=== PATIENT | female | born 1985 | race African-American/Black ===

== ENCOUNTER 2023-10-19 21:01 | Inpatient (IN) | payer OTHER ==
[2023-10-19 21:39] VITALS: BMI 23.3
[2023-10-19] MEDS ORDERED: NALOXONE (NARCAN) HCL 4 MG/0.1 ML SPRAY NS PRN (22:04)
[2023-10-19] MEDS ORDERED: BISMUTH SUBSALICYLATE 524 MG/30 ML PO PRN (22:04)
[2023-10-19] MEDS ORDERED: MAG HYDROX/AL HYDROX/SIMETH 30 ML UNIT-DOSE CUP PO PRN (22:04)
[2023-10-19] MEDS ORDERED: LOPERAMIDE HCL 2 MG CAPSULE PO PRN (22:04)
[2023-10-19] MEDS ORDERED: BENZONATATE 200 MG CAPSULE PO PRN (22:04)
[2023-10-19] MEDS ORDERED: NALOXONE HCL 0.4 MG/ML VIAL IM PRN (22:04)
[2023-10-19] MEDS ORDERED: DICYCLOMINE HCL 10 MG CAPSULE PO PRN (22:04)
[2023-10-19] MEDS ORDERED: guaiFENesin 600 MG TABLET.ER (FP) PO PRN (22:04)
[2023-10-19] MEDS ORDERED: BENZOCAINE/MENTHOL (CHLORASEPTIC ) LOZENGE MM PRN (22:04)
[2023-10-19] MEDS ORDERED: chlordiazePOXIDE HCL 25 MG CAPSULE PO PRN (22:04)
[2023-10-19] MEDS: chlordiazePOXIDE HCL 25 MG CAPSULE PO SCH (23:40)
[2023-10-19] MEDS: METHOCARBAMOL 500 MG TABLET PO PRN (23:42)
[2023-10-20] MEDS: IBUPROFEN 600 MG TABLET (FP) PO PRN (00:46)
[2023-10-20] MEDS: NICOTINE 14 MG/24 HOURS TOPICAL PATCH TD SCH (10:11)
[2023-10-20] MEDS: PRENATAL VITAMINS W/ FOLIC ACID TABLET (FP) PO SCH (10:11)
[2023-10-20] MEDS: ONDANSETRON *ODT* 4 MG TABLET SL PRN (10:13)
[2023-10-20] MEDS: IBUPROFEN 400 MG TABLET (FP) PO PRN (10:15)
[2023-10-20] MEDS: NICOTINE POLACRILEX 2 MG LOZENGE BC PRN (10:31)
[2023-10-20 12:03] LABS: HEMATOCRIT 33.6 % (32.4-45.2); MCH 30.4 pg (25.7-33.7); MCHC 32.8 g/dl (32.0-36.0); MEAN CELL VOLUME 92.6 fl (80-96); MEAN PLT VOLUME 8.1 fl (7.5-11.1); PLATELET COUNT 174 10^3/uL (134-434); RBC 3.63 M/mm3 (3.60-5.2); RDW 13.2 % (11.6-15.6); WHITE BLOOD COUNT 3.9 K/mm3 (4.0-10.0)
[2023-10-20 12:04] LABS: CHLORIDE 101 mmol/L (98-107); POTASSIUM 3.8 mmol/L (3.5-5.1); SODIUM 136 mmol/L (136-145)
[2023-10-20 12:12] LABS: ANION GAP 7 mmol/L (4-13); CALCIUM 9.3 mg/dL (8.5-10.1); CO2 28 mmol/L (21-32); GLUCOSE,RANDOM 94 mg/dL (74-106)
[2023-10-20 12:13] LABS: BLOOD UREA NITROGEN 13.1 mg/dL (7-18)
[2023-10-20 12:15] LABS: CREATININE 0.6 mg/dL (0.55-1.3); SGPT/ALT 36 U/L (13-61)
[2023-10-20 12:16] LABS: SGOT/AST 76 U/L (15-37)
[2023-10-20 12:17] LABS: TOT PROT 7.2 g/dl (6.4-8.2)
[2023-10-20 12:18] LABS: ALK PHOS 79 U/L (45-117); BILIRUBIN,TOTAL 1.2 mg/dL (0.2-1)
[2023-10-20] MEDS: CYCLOBENZAPRINE HCL 10 MG TABLET (FP) PO SCH (14:22)
[2023-10-20] MEDS: FLUTICASONE PROP 0.05% 16 GM NASAL SPRAY NS SCH (14:23)
[2023-10-20] MEDS: hydrOXYzine PAMOATE 25 MG CAPSULE (FP) PO PRN (15:08)
[2023-10-20] MEDS ORDERED: MELATONIN 5 MG TABLETS PO SCH (22:00)
[2023-10-20] MEDS: THIAMINE 100 MG TABLET PO SCH (22:15)
[2023-10-21] MEDS: chlordiazePOXIDE HCL 25 MG CAPSULE PO SCH (05:51)
[2023-10-21] MEDS ORDERED: CHOLECALCIFEROL (VIT D3) 5000 UNITS (125 MCG) CAP PO SCH (10:00)
[2023-10-21] MEDS: LORATADINE 10 MG TABLET PO SCH (10:15)
[2023-10-21] MEDS: CHOLECALCIFEROL (VIT D3) 400 UNIT (10 MCG) TABLET PO SCH (10:15)
[2023-10-21] MEDS: ACETAMINOPHEN 325 MG TABLET (FP) PO PRN (10:17)
[2023-10-22] MEDS ORDERED: chlordiazePOXIDE HCL 10 MG CAPSULE PO PRN
[2023-10-22] MEDS: chlordiazePOXIDE HCL 10 MG CAPSULE PO SCH (05:34)
[2023-10-23] MEDS: chlordiazePOXIDE HCL 10 MG CAPSULE PO SCH (05:41)
[2023-10-23] MEDS: PANTOPRAZOLE 40 MG TABLET PO SCH (10:29)
[2023-10-23 21:23] VITALS: PULSE 78; RESP 16; TEMP 97.8
[2023-10-23] MEDS: PRAZOSIN HCL 1 MG CAPSULE PO SCH (21:59)
[2023-10-23] MEDS: traZODone HCL 100 MG TABLET (FP) PO SCH (21:59)
[2023-10-23] MEDS ORDERED: traZODone HCL 50 MG TABLET (FP) PO SCH (22:00)
[2023-10-24] MEDS: MAGNESIUM HYDROX 2400MG/30ML ORAL SUSPENSION 30 ML CUP PO PRN (04:15)
[2023-10-24] MEDS: chlordiazePOXIDE HCL 10 MG CAPSULE PO ONE (04:15)
[2023-10-24 06:42] VITALS: BP 104/67
[2023-10-24] MEDS: POLYETHYLENE GLYCOL (HEALTHYLAX) 3350 17 GM PACKET PO PRN (08:16)
== END 2023-10-24 09:27 | disposition home or self-care (01) | DRG 775 ==
LOC: YASAS 21:01 → Y6N 23:02
PROVIDERS: ADMIT Allergy & Immunology; ATTEND Psychiatry & Neurology Pain Medicine
PROC: HZ2ZZZZ Detoxification Services for Substance Abuse Treatment (ICD-10-PCS; principal; 2023-10-19)
DX: F10.230 Alcohol dependence with withdrawal, uncomplicated (principal); F12.20 Cannabis dependence, uncomplicated; F17.210 Nicotine dependence, cigarettes, uncomplicated; F31.9 Bipolar disorder, unspecified; F19.24 Other psychoactive substance dependence with psychoactive substance-induced mood disorder; F41.9 Anxiety disorder, unspecified; F43.10 Post-traumatic stress disorder, unspecified; M54.50 Low back pain, unspecified; G89.29 Other chronic pain
CPT/HCPCS: 36415; 80053; 80305; 80307; 81025; 85027; 86780; 93005; 93010; Q0162

== ENCOUNTER 2024-01-09 14:30 | Inpatient (IN) | payer OTHER ==
[2024-01-09 15:17] VITALS: BMI 21.8
[2024-01-09] MEDS ORDERED: POLYETHYLENE GLYCOL (HEALTHYLAX) 3350 17 GM PACKET PO PRN (17:32)
[2024-01-09] MEDS ORDERED: BISMUTH SUBSALICYLATE 524 MG/30 ML PO PRN (17:32)
[2024-01-09] MEDS ORDERED: NICOTINE POLACRILEX 2 MG LOZENGE BC PRN (17:32)
[2024-01-09] MEDS ORDERED: DICYCLOMINE HCL 10 MG CAPSULE PO PRN (17:32)
[2024-01-09] MEDS ORDERED: MAG HYDROX/AL HYDROX/SIMETH 30 ML UNIT-DOSE CUP PO PRN (17:32)
[2024-01-09] MEDS ORDERED: guaiFENesin 600 MG TABLET.ER (FP) PO PRN (17:32)
[2024-01-09] MEDS ORDERED: BENZOCAINE/MENTHOL (CHLORASEPTIC ) LOZENGE MM PRN (17:32)
[2024-01-09] MEDS ORDERED: LOPERAMIDE HCL 2 MG CAPSULE PO PRN (17:32)
[2024-01-09] MEDS ORDERED: BENZONATATE 200 MG CAPSULE PO PRN (17:32)
[2024-01-09] MEDS ORDERED: ACETAMINOPHEN 325 MG TABLET (FP) PO PRN (17:32)
[2024-01-09] MEDS ORDERED: diazePAM 5 MG TABLET ONE (18:44)
[2024-01-09] MEDS: diazePAM 5 MG TABLET PO PRN (18:55)
[2024-01-09] MEDS: THIAMINE 100 MG TABLET PO SCH (22:23)
[2024-01-09] MEDS: MELATONIN 5 MG TABLETS PO SCH (22:23)
[2024-01-09] MEDS: diazePAM 5 MG TABLET PO SCH (22:26)
[2024-01-09] MEDS: IBUPROFEN 400 MG TABLET (FP) PO PRN (22:27)
[2024-01-10] MEDS: ONDANSETRON *ODT* 4 MG TABLET SL PRN (03:41)
[2024-01-10] MEDS: METHOCARBAMOL 500 MG TABLET PO PRN (05:44)
[2024-01-10] MEDS: PRENATAL VITAMINS W/ FOLIC ACID TABLET (FP) PO SCH (10:22)
[2024-01-10] MEDS: hydrOXYzine PAMOATE 25 MG CAPSULE (FP) PO PRN (10:23)
[2024-01-10] MEDS: CHOLECALCIFEROL (VIT D3) 5000 UNITS (125 MCG) CAP PO SCH (10:24)
[2024-01-10 10:25] LABS: HEMOGLOBIN 11.6 GM/dL (10.7-15.3); MCHC 33.1 g/dl (32.0-36.0); MEAN CELL VOLUME 93.8 fl (80-96); MEAN PLT VOLUME 8.5 fl (7.5-11.1); PLATELET COUNT 168 10^3/uL (134-434); RBC 3.73 M/mm3 (3.60-5.2); WHITE BLOOD COUNT 3.1 K/mm3 (4.0-10.0)
[2024-01-10] MEDS: FOLIC ACID 1 MG TABLET (FP) PO SCH (10:25)
[2024-01-10 10:26] LABS: POTASSIUM 4.3 mmol/L (3.5-5.1)
[2024-01-10] MEDS: MAGNESIUM HYDROX 2400MG/30ML ORAL SUSPENSION 30 ML CUP PO PRN (10:28)
[2024-01-10 10:31] LABS: ALBUMIN 3.7 g/dl (3.4-5.0); CALCIUM 9.8 mg/dL (8.5-10.1)
[2024-01-10 10:32] LABS: BLOOD UREA NITROGEN 7.6 mg/dL (7-18)
[2024-01-10 10:35] LABS: CREATININE 0.6 mg/dL (0.55-1.3)
[2024-01-10 10:36] LABS: TOT PROT 6.8 g/dl (6.4-8.2)
[2024-01-10] MEDS: LORATADINE 10 MG TABLET PO PRN (19:09)
[2024-01-10] MEDS: PRAZOSIN HCL 1 MG CAPSULE PO SCH (22:12)
[2024-01-10] MEDS: traZODone HCL 100 MG TABLET (FP) PO SCH (22:12)
[2024-01-10] MEDS: NICOTINE POLACRILEX 2 MG GUM BUC PRN (22:53)
[2024-01-11] MEDS: diazePAM 5 MG TABLET PO SCH (05:41)
[2024-01-11] MEDS: IBUPROFEN 600 MG TABLET (FP) PO PRN (11:15)
[2024-01-12] MEDS: diazePAM 5 MG TABLET PO SCH (05:32)
[2024-01-12] MEDS: NALOXONE (NYS OPIOID OVERDOSE PROGRAM) 4 MG/0.1 ML SPRAY NS SCH (10:47)
[2024-01-12] MEDS: DOCUSATE SODIUM 100 MG CAPSULE (FP) PO SCH (13:13)
[2024-01-12] MEDS: SENNOSIDES 8.6MG TABLET (FP) PO SCH (22:11)
[2024-01-13] MEDS: diazePAM 5 MG TABLET PO ONE (05:44)
[2024-01-13 06:44] VITALS: BP 104/67; PULSE 85; RESP 16; TEMP 97.6
== END 2024-01-13 09:16 | disposition home or self-care (01) | DRG 775 ==
LOC: YASAS 14:30 → Y6N 19:09
PROVIDERS: ADMIT Allergy & Immunology; ATTEND Surgery
PROC: HZ2ZZZZ Detoxification Services for Substance Abuse Treatment (ICD-10-PCS; principal; 2024-01-09)
DX: F10.230 Alcohol dependence with withdrawal, uncomplicated (principal); F12.20 Cannabis dependence, uncomplicated; F17.210 Nicotine dependence, cigarettes, uncomplicated; F31.9 Bipolar disorder, unspecified; F43.10 Post-traumatic stress disorder, unspecified; F41.9 Anxiety disorder, unspecified; K59.00 Constipation, unspecified; Z91.410 Personal history of adult physical and sexual abuse; Z63.0 Problems in relationship with spouse or partner
CPT/HCPCS: 36415; 80053; 80305; 80307; 81025; 85027; Q0162

== ENCOUNTER 2024-03-13 04:05 | Emergency (ER) | payer OTHER ==
[2024-03-13 04:09] VITALS: BMI 28.3
[2024-03-13] MEDS ORDERED: LORazepam 1 MG TABLET ONE (04:42)
[2024-03-13] MEDS: LORazepam 2 MG TABLET PO ONE (04:46)
[2024-03-13 09:34] VITALS: TEMP 98.5
[2024-03-13] MEDS ORDERED: chlordiazePOXIDE HCL 25 MG CAPSULE ONE (09:36)
[2024-03-13] MEDS: chlordiazePOXIDE HCL 25 MG CAPSULE PO ONE (09:38)
[2024-03-13] MEDS ORDERED: ONDANSETRON 4 MG/2 ML VIAL ONE (11:11)
[2024-03-13] MEDS ORDERED: ACETAMINOPHEN INJECTION 100 ML ONE (11:11)
[2024-03-13] MEDS: ACETAMINOPHEN 500 MG TABLET (FP) PO ONE (11:11)
[2024-03-13] MEDS: ONDANSETRON 4 MG/2 ML VIAL IVPUSH ONE (11:20)
[2024-03-13] MEDS: ACETAMINOPHEN 1000 MG/100 ML BAG IVPB ONE (11:24)
[2024-03-13] MEDS: SODIUM CHLORIDE 1,000 ML IV STA (11:24)
[2024-03-13 13:56] VITALS: BP 102/65; PULSE 92; RESP 19
== END 2024-03-13 14:45 | disposition home or self-care (01) ==
LOC: JER 04:05
PROC: 3E033NZ Introduction of Analgesics, Hypnotics, Sedatives into Peripheral Vein, Percutaneous Approach (ICD-10-PCS; principal; 2024-03-13)
PROC: 3E033GC Introduction of Other Therapeutic Substance into Peripheral Vein, Percutaneous Approach (ICD-10-PCS; 2024-03-13)
PROC: 3E0337Z Introduction of Electrolytic and Water Balance Substance into Peripheral Vein, Percutaneous Approach (ICD-10-PCS; 2024-03-13)
DX: F10.129 Alcohol abuse with intoxication, unspecified (principal); F31.9 Bipolar disorder, unspecified; F41.9 Anxiety disorder, unspecified; R00.0 Tachycardia, unspecified
CPT/HCPCS: 99284-25; J0131

== ENCOUNTER 2024-03-13 16:06 | Inpatient (IN) | payer OTHER ==
[2024-03-13 17:04] VITALS: BMI 23.3
[2024-03-13] MEDS ORDERED: DICYCLOMINE HCL 10 MG CAPSULE PO PRN (17:16)
[2024-03-13] MEDS ORDERED: guaiFENesin 600 MG TABLET.ER (FP) PO PRN (17:16)
[2024-03-13] MEDS ORDERED: POLYETHYLENE GLYCOL (HEALTHYLAX) 3350 17 GM PACKET PO PRN (17:16)
[2024-03-13] MEDS ORDERED: LOPERAMIDE HCL 2 MG CAPSULE PO PRN (17:16)
[2024-03-13] MEDS ORDERED: IBUPROFEN 400 MG TABLET (FP) PO PRN (17:16)
[2024-03-13] MEDS ORDERED: ACETAMINOPHEN 325 MG TABLET (FP) PO PRN (17:16)
[2024-03-13] MEDS ORDERED: MAG HYDROX/AL HYDROX/SIMETH 30 ML UNIT-DOSE CUP PO PRN (17:16)
[2024-03-13] MEDS ORDERED: BISMUTH SUBSALICYLATE 524 MG/30 ML PO PRN (17:16)
[2024-03-13] MEDS ORDERED: NALOXONE (NARCAN) HCL 4 MG/0.1 ML SPRAY NS PRN (17:16)
[2024-03-13] MEDS: IBUPROFEN 600 MG TABLET (FP) PO PRN (18:41)
[2024-03-13] MEDS: chlordiazePOXIDE HCL 25 MG CAPSULE PO PRN (18:42)
[2024-03-13] MEDS: THIAMINE 100 MG TABLET PO SCH (22:23)
[2024-03-13] MEDS: MELATONIN 5 MG TABLETS PO SCH (22:23)
[2024-03-13] MEDS: chlordiazePOXIDE HCL 25 MG CAPSULE PO SCH (22:23)
[2024-03-13] MEDS: METHOCARBAMOL 500 MG TABLET PO PRN (23:07)
[2024-03-14] MEDS: hydrOXYzine PAMOATE 25 MG CAPSULE (FP) PO PRN (01:40)
[2024-03-14] MEDS: PRENATAL VITAMINS W/ FOLIC ACID TABLET (FP) PO SCH (10:01)
[2024-03-14] MEDS ORDERED: NALOXONE (NYS OPIOID OVERDOSE PROGRAM) 4 MG/0.1 ML SPRAY NS SCH (10:15)
[2024-03-14 10:41] LABS: HEMATOCRIT 33.3 % (32.4-45.2); MCH 29.6 pg (25.7-33.7); MCHC 33.2 g/dl (32.0-36.0); MEAN CELL VOLUME 89.3 fl (80-96); PLATELET COUNT 160 10^3/uL (134-434); RBC 3.72 M/mm3 (3.60-5.2); RDW 13.5 % (11.6-15.6); WHITE BLOOD COUNT 2.9 K/mm3 (4.0-10.0)
[2024-03-14 10:44] LABS: CHLORIDE 98 mmol/L (98-107); POTASSIUM 4.1 mmol/L (3.5-5.1); SODIUM 134 mmol/L (136-145)
[2024-03-14] MEDS: BENZONATATE 200 MG CAPSULE PO PRN (10:52)
[2024-03-14 11:00] LABS: CALCIUM 9.5 mg/dL (8.5-10.1)
[2024-03-14 11:01] LABS: ALBUMIN 3.2 g/dl (3.4-5.0); ANION GAP 4 mmol/L (4-13); BLOOD UREA NITROGEN 9.7 mg/dL (7-18); CO2 32 mmol/L (21-32); GLUCOSE,RANDOM 94 mg/dL (74-106)
[2024-03-14 11:03] LABS: SGOT/AST 34 U/L (15-37); SGPT/ALT 30 U/L (13-61)
[2024-03-14 11:04] LABS: BILIRUBIN,TOTAL 0.9 mg/dL (0.2-1); CREATININE 0.6 mg/dL (0.55-1.3); TOT PROT 6.6 g/dl (6.4-8.2)
[2024-03-14 11:06] LABS: ALK PHOS 91 U/L (45-117)
[2024-03-14] MEDS: NALTREXONE HCL 50 MG TABLET PO SCH (11:51)
[2024-03-14] MEDS: LORATADINE 10 MG TABLET PO SCH (12:53)
[2024-03-14] MEDS: FOLIC ACID 1 MG TABLET (FP) PO SCH (12:53)
[2024-03-14] MEDS ORDERED: PRAZOSIN HCL 5 MG CAPSULE PO SCH (22:00)
[2024-03-14] MEDS: PRAZOSIN HCL 1 MG CAPSULE PO SCH (22:21)
[2024-03-14] MEDS: traZODone HCL 100 MG TABLET (FP) PO SCH (22:21)
[2024-03-15] MEDS: chlordiazePOXIDE HCL 25 MG CAPSULE PO SCH (05:51)
[2024-03-15] MEDS: ONDANSETRON *ODT* 4 MG TABLET SL PRN (06:05)
[2024-03-15] MEDS: MAGNESIUM HYDROX 2400MG/30ML ORAL SUSPENSION 30 ML CUP PO PRN (16:04)
[2024-03-15] MEDS: MELATONIN 5 MG TABLETS PO SCH (22:35)
[2024-03-16] MEDS ORDERED: chlordiazePOXIDE HCL 10 MG CAPSULE PO PRN
[2024-03-16] MEDS: chlordiazePOXIDE HCL 10 MG CAPSULE PO SCH (05:50)
[2024-03-16] MEDS: BENZOCAINE/MENTHOL (CHLORASEPTIC ) LOZENGE MM PRN (10:23)
[2024-03-16] MEDS: NICOTINE POLACRILEX 2 MG GUM BUC PRN (22:22)
[2024-03-17] MEDS: chlordiazePOXIDE HCL 10 MG CAPSULE PO SCH (05:37)
[2024-03-17 09:19] LABS: BASO % 0.4 % (0-2.0); EOS % 1.5 % (0-4.5); HEMATOCRIT 33.7 % (32.4-45.2); LYMPH % 47.6 % (8-40); MCH 29.3 pg (25.7-33.7); MCHC 32.5 g/dl (32.0-36.0); MEAN CELL VOLUME 90.1 fl (80-96); MEAN PLT VOLUME 7.8 fl (7.5-11.1); MONO % 15.2 % (3.8-10.2); NEUT % 35.3 % (42.8-82.8); PLATELET COUNT 179 10^3/uL (134-434); RBC 3.74 M/mm3 (3.60-5.2); RDW 13.4 % (11.6-15.6); WHITE BLOOD COUNT 3.6 K/mm3 (4.0-10.0)
[2024-03-18] MEDS: chlordiazePOXIDE HCL 10 MG CAPSULE PO ONE (06:00)
[2024-03-18 09:12] VITALS: BP 102/60; PULSE 94; RESP 16; TEMP 98.1
== END 2024-03-18 11:35 | disposition home or self-care (01) | DRG 775 ==
LOC: YASAS 16:06 → Y6N 17:41
PROVIDERS: ADMIT Allergy & Immunology; ATTEND Allergy & Immunology
PROC: HZ2ZZZZ Detoxification Services for Substance Abuse Treatment (ICD-10-PCS; principal; 2024-03-13)
DX: F10.230 Alcohol dependence with withdrawal, uncomplicated (principal); F12.20 Cannabis dependence, uncomplicated; F17.210 Nicotine dependence, cigarettes, uncomplicated; F32.A Depression, unspecified; F43.10 Post-traumatic stress disorder, unspecified; F41.9 Anxiety disorder, unspecified; D72.819 Decreased white blood cell count, unspecified; G47.00 Insomnia, unspecified
CPT/HCPCS: 36415; 80053; 80305; 80307; 81025; 85025; 85027; 86780; J0131; Q0162